=== PATIENT | male | born 1950 | race Two or more races ===

== ENCOUNTER 2018-01-18 12:27 | Outpatient (CLI) | payer OTHER | END 2018-01-18 12:30 | disposition home or self-care (01) | LOC: LAB 12:27 | DX: D63.0 Anemia in neoplastic disease (principal); C90.00 Multiple myeloma not having achieved remission; I10 Essential (primary) hypertension; R74.0 Nonspecific elevation of levels of transaminase and lactic acid dehydrogenase [LDH]; E83.39 Other disorders of phosphorus metabolism ==

== ENCOUNTER 2018-01-25 11:17 | Outpatient (CLI) | payer OTHER | END 2018-01-25 11:20 | disposition home or self-care (01) | LOC: LAB 11:17 | DX: C90.00 Multiple myeloma not having achieved remission (principal) ==

== ENCOUNTER → 2018-02-16 | Outpatient (CLI) | payer OTHER | END | disposition home or self-care (01) | LOC: LAB 14:54 | DX: C90.00 Multiple myeloma not having achieved remission (principal); C92.11 Chronic myeloid leukemia, BCR/ABL-positive, in remission; I10 Essential (primary) hypertension; R74.0 Nonspecific elevation of levels of transaminase and lactic acid dehydrogenase [LDH]; E86.0 Dehydration ==